=== PATIENT | female | born 1985 | race Caucasian/White ===

== ENCOUNTER 2021-02-22 09:51 | Emergency (ER) | payer OTHER ==
[2021-02-23 15:08] LABS: SARS-CoV-2 NAA Not Detected (Not Detected)
== END 2021-02-22 11:15 | disposition home or self-care (01) ==
LOC: JVIRT 09:51
DX: Z11.52 Encounter for screening for COVID-19 (principal)
CPT/HCPCS: C9803; Q3014-GT; U0003; U0005